=== PATIENT | male | born 1995 | race Hispanic/Latino ===

== ENCOUNTER 2025-01-20 02:24 | Emergency (ER) | payer BC, MEDICAID ==
[~2025-01-20] VITALS: Ht 175.3 cm; Wt 78.5 kg
[2025-01-20 02:25] VITALS: TEMP 98.2
--- NOTE | 2025-01-20 02:42 | ERN ---
ED Note History of Present Illness Stated Complaint: C/O ABD PAIN ONSET 2 HRS [employer] Chief Complaint: Abdominal Pain Time Seen by MD: 02:32 Dictation: Patient comes in. Because he has some left sided abdominal pain. And epigastric abdominal pain. 2 hours prior to arrival. Denies any previous medical problems denies any cough congestion runny nose denies any diarrhea says stools daily. I says that is soft stool. Denies any previous medical problems falls trips traumas or other issue denies taking medications Allergies: Coded Allergies: No Known Drug Allergies (Unverified Allergy, Unknown, 01/20/25) Past Medical History Past Medical History: No Pertinent History Surgical History: None Review of System Dictation Constitutional: Negative for fever,chills, and weight loss Eyes: Negative for injury, pain,redness, and discharge ENT: Negative for injury,pain or swelling Cardiovascular: Negative for chest pain, palpitations, and edema Respiratory: Negative for shortness of breath, cough, and wheezing, Abdomen/GI: Left-sided abdominal pain. Back: Negative for injury and pain : Negative for injury, bleeding and discharge MS/Extremity: Negative for injury and deformity Skin: Negative for rash, and discoloration Neuro: Negative for headache, weakness, numbness, tingling, and seizure Psych: Negative for suicide ideation, homicidal ideation, and hallucinations Initial Vital Sign VS Vital Signs Date Time Temp Pulse Resp B/P (MAP) Pulse Ox O2 Delivery O2 Flow Rate FiO2 01/20/25 02:25 98.2 78 20 125/88 100 Room Air 01/20/25 03:50 0 21 Physical Exam Dictation General: awake, alert, NAD Head/Face: Normocephalic, atraumatic Eyes: PERRL, EOMI, vision at baseline ENT: oral cavity clear, TMs clear, no signs of infection Neck: Trachea midline, supple, no nuchal rigidity Cardiovascular: RRR, normal S1/S2, No MRGs, no JVD Respiratory: CTAB, no respiratory distress, No rales or wheezes Abdomen: Soft, non-tender, non-distended, normal bowel sounds, no guarding or rebound. Skin: Warm, dry, normal turgor, no rash MS/Extremity: Pulses equal, no cyanosis, neurovascular intact, FROM Neuro: COAx4, GCS 15, strength 5/5, CN 2-12 intact, normal cerebellar exam, normal gait, Psych: Normal behavior, mood, and affect normal Patient was able to point. He says it was pain. His close to the epigastric region. More periumbilical. And then to the left side. But it was not of the right lower quadrant. No right upper quadrant pain negative King's sign Results (Laboratory/Radiology) Laboratory/Radiology Laboratory Tests Test 01/20/25 03:00 White Blood Count 7.8 K/uL (4.8-10.8) Red Blood Count 4.64 MIL/uL (4.50-6.20) Hemoglobin 14.3 g/dL (14.0-18.0) Hematocrit 41.7 % (42-54) L Mean Corpuscular Volume 89.9 fL (79-99) Mean Corpuscular Hemoglobin 30.8 pg (27.0-33.0) Mean Corpuscular Hemoglobin Concent 34.3 g/dL (32.0-36.0) Red Cell Distribution Width 11.6 % (11.0-15.5) Platelet Count 314 K/uL (130-400) Mean Platelet Volume 8.9 fL (7.5-10.5) Immature Granulocyte % (Auto) 0.3 % (0-1) Neutrophils (%) (Auto) 60.1 % (40.0-77.0) Lymphocytes (%) (Auto) 26.2 % (21.0-51.0) Monocytes (%) (Auto) 8.6 % (3.0-13.0) Eosinophils (%) (Auto) 4.4 % (0.0-8.0) Basophils (%) (Auto) 0.4 % (0.0-5.0) Neutrophils # (Auto) 4.7 K/uL (1.8-7.7) Lymphocytes # (Auto) 2.1 K/uL (1.0-4.8) Monocytes # (Auto) 0.7 K/uL (0.1-1.0) Eosinophils # (Auto) 0.34 K/uL (0.00-0.70) Basophils # (Auto) 0.03 K/uL (0.00-0.20) Absolute Immature Granulocyte (auto 0.02 K/uL (0-1) Nucleated Red Blood Cells 0.0 % (0.0-0.19) Sodium Level 139 mmol/L (136-145) Potassium Level 4.0 mmol/L (3.5-5.1) Chloride Level 102 mmol/L (101-111) Carbon Dioxide Level 33 mmol/L (21-32) H Blood Urea Nitrogen 11 mg/dL (7-18) Creatinine 1.0 mg/dL (0.5-1.3) Glomerular Filtration Rate Calc 104 mL/min (>90) Random Glucose 98 mg/dL (70-105) Total Calcium 8.9 mg/dL (8.5-10.1) Total Bilirubin 0.6 mg/dL (0.2-1.0) Aspartate Amino Transf (AST/SGOT) 14 U/L (10-37) Alanine Aminotransferase (ALT/SGPT) 26 U/L (12-78) Alkaline Phosphatase 73 U/L (50-136) Troponin I High Sensitivity < 4 ng/L (4-75) L Total Protein 6.9 g/dL (6.0-8.3) Albumin 4.0 g/dL (3.5-5.0) Lipase 28 U/L (16-77) ED Course ED Course Orders Procedure Category Date Status Time Cbc With Differential LAB 01/20/25 Complete 02:38 Comprehensive LAB 01/20/25 Complete Metabolic Panel 02:38 Troponin I High LAB 01/20/25 Complete Sensitivity 02:38 12 Lead Ekg Tracing- EKG 01/20/25 Logged Technical 02:38 Lactated Ringers PHA 01/20/25 Complete 1000ml (Lactated 03:00 Morphine 4mg Syg PHA 01/20/25 Complete (Morphine 4mg Syg) 03:00 Ondansetron 4mg Inj PHA 01/20/25 Complete (Zofran 4mg Inj) 03:00 Ct Abdomen/Pelvis W/O CT 01/20/25 Taken Contrast 02:38 Chest 1vw RAD 01/20/25 Taken 02:38 Lipase LAB 01/20/25 Complete 02:38 Current Medications Medications (Trade) Dose Ordered Sig/Radha Route PRN Reason Start Time Stop Time Status Last Admin Dose Admin Lactated Ringer's 1,000 ml @ 0 mls/hr ONCE ONCE IV 01/20/25 03:00 01/20/25 03:02 DC 01/20/25 03:56 Morphine Sulfate (morPHINE 4MG SYG) 4 mg ONCE ONCE IVP 4/16/25 03:00 01/20/25 03:02 DC 01/20/25 03:56 Ondansetron HCl (zoFRAN 4MG INJ) 4 mg ONCE ONCE IVP 01/20/25 03:00 01/20/25 03:02 DC 01/20/25 03:56 Vital Signs Date Time Temp Pulse Resp B/P (MAP) Pulse Ox O2 Delivery O2 Flow Rate FiO2 01/20/25 03:50 64 18 122/72 100 Room Air* 0 21 01/20/25 02:25 98.2 78 20 125/88 100 Room Air Medical Decision Making MDM Likely GERD gastritis intestinal colic. Did consider diverticulitis unlikely be appendicitis abilities he has no pain in his region. No objective abdominal pain no tachycardia no fevers no chills no nausea no vomiting I told the patient that we can do some labs tests imaging and pain medication feel better he was in agreement with this no other questions complaints concerns at this time. MDM: Differential diagnosis: Rationale: Tests considered and ordered secondary to shared decision making include: Previous outside records reviewed: Old ER visits. Risk of complication and/or morbidity or mortality of patient management: None Medications-Per medication reconciliation Need for hospitalization: Patient does not meet criteria for hospitalization. Need for emergency major/minor surgery: No There are no social concerns with this patient. Prescription drug management Prescriptions will include symptomatic care Patient's prior external medical records from other ER visits were reviewed by me as indicated. Prior testing and results from previous visits were reviewed. Prior tests were taken into account with medical decision making and resource utilization, independent historian/historians were used to obtain complete medical history. I independently interpreted the test that were performed, results were reviewed by me and considered findings on radiology if ordered. Medical management and examination interpretation discussions were had by me with other qualified healthcare professionals as indicated for the patient's care. DX & DISP Disposition: Discharge Departure Impression: Primary Impression: Abdominal pain Condition: Stable Scripts Ondansetron (Ondansetron Odt) 4 Mg Tab.rapdis 4 MG PO Q6HPRN PRN for NAUSEA for 5 Days, #20 TAB Prov: AAKASH DUQUE MD 01/20/25 Famotidine (Famotidine) 20 Mg Tablet 20 MG PO BID for 5 Days, #10 TAB Prov: AAKASH DUQUE MD 01/20/25 Referrals: SELF,REFERRAL (PCP) AAKASH DUQUE MD Jan 20, 2025 02:42
[2025-01-20 03:23] LABS: BILIRUBIN,TOTAL 0.6 mg/dL (0.2-1.0); TOTAL PROTEIN, SERUM 6.9 g/dL (6.0-8.3)
[2025-01-20 03:31] LABS: BASOPHILS # (AUTO) 0.03 K/uL (0.00-0.20); BASOPHILS % (AUTO) 0.4 % (0.0-5.0); EOSINOPHILS # (AUTO) 0.34 K/uL (0.00-0.70); EOSINOPHILS % (AUTO) 4.4 % (0.0-8.0); HEMATOCRIT 41.7 % (42-54); IMMATURE GRANULOCYTE ABSOLUTE 0.02 K/uL (0-1); LYMPHOCYTES # (AUTO) 2.1 K/uL (1.0-4.8); LYMPHOCYTES % (AUTO) 26.2 % (21.0-51.0); MEAN CORPUSCULAR HEMOGLOBIN 30.8 pg (27.0-33.0); MEAN CORPUSCULAR HGB CONC 34.3 g/dL (32.0-36.0); MEAN CORPUSCULAR VOLUME 89.9 fL (79-99); MONOCYTES # (AUTO) 0.7 K/uL (0.1-1.0); MONOCYTES % (AUTO) 8.6 % (3.0-13.0); NEUTROPHILS # (AUTO) 4.7 K/uL (1.8-7.7); NEUTROPHILS % (AUTO) 60.1 % (40.0-77.0); PLATELET COUNT (AUTO) 314 K/uL (130-400); RED BLOOD CELL COUNT(AUTO) 4.64 MIL/uL (4.50-6.20); RED CELL DISTRIBUTION WIDTH 11.6 % (11.0-15.5); WHITE BLOOD COUNT (AUTO) 7.8 K/uL (4.8-10.8)
--- NOTE | 2025-01-20 03:45 | NUR ---
BROUGHT BACK FROM CT SCAN
[2025-01-20 03:50] VITALS: BP 122/72; PULSE 64; RESP 18; O2SAT 100
[2025-01-20] MEDS: ondanSETRON 4MG INJ IVP ONE (03:56)
[2025-01-20] MEDS: LACTATED RINGERS 1000ML 1,000 ML IV ONE (03:56)
[2025-01-20] MEDS: morPHINE 4 MG SYG IVP ONE (03:56)
[2025-01-20] MEDS ORDERED: ONDA-243 PO (04:29)
[2025-01-20] MEDS ORDERED: FAMO20TA8 PO (04:29)
--- NOTE | 2025-01-20 06:28 | EKG ---
[facility] Test Date: 2025-01-20 Test Time: 02:57:45 Pat Name: SHEFALI NGUYEN Department: ED Room: Gender: M [employer]: [id number] : 1995 Requested By: AAKASH DUQUE Order Number: [id number] Reading MD: Kerry Centeno Measurements Intervals [place] Rate: 64 P: 20 OK: 147 QRS: 66 QRSD: 82 T: 49 QT: 365 QTc: 376 Interpretive Statements Sinus rhythm No previous ECG available for comparison Electronically Signed On 01-22-2025 09:32:51 CDT by Kerry Centeno Please click the below link to view image of tracing.
--- NOTE | 2025-01-20 09:44 | HMCIMG ---
PORTABLE CHEST RADIOGRAPH INDICATION: cp COMPARISON: None FINDINGS: Heart size is normal. The pulmonary vascularity and jose a appear normal. No abnormal pulmonary parenchymal opacity or consolidation identified. No significant pleural effusion noted. No pneumothorax detected. IMPRESSION: No radiographic evidence for any acute cardiopulmonary process.
--- NOTE | 2025-01-20 10:02 | HMCIMG ---
CT ABDOMEN WITHOUT CONTRAST. CT PELVIS WITHOUT CONTRAST. INDICATION: Left lower abdominal pain TECHNIQUE: Routine transaxial imaging using 5 mm slice thickness through the abdomen and pelvis without the administration of IV contrast. Thin slice reconstructions are also provided. Coronal and sagittal reformatted images acquired for interpretation. CT was performed with one or more of the following dose reduction techniques: Automated exposure control, adjustment of the mA and/or kV according to patient size, or use of iterative reconstruction technique. COMPARISON: None FINDINGS: ON NONCONTRAST IMAGING: ABDOMEN: Heart size is normal. Visible lung bases are clear. No abnormal renal calcifications, hydronephrosis, perinephric inflammation, or proximal hydroureter detected. The liver is normal in size and smooth in contour without biliary duct dilation. The spleen is normal in size and attenuation. The gallbladder appears normal. The pancreas appears normal without pancreatic duct dilation. The adrenal glands appear normal. No significant abdominal, retrocrural or retroperitoneal adenopathy noted. No evidence for intra-abdominal free air or organized fluid collection. No aortic aneurysmal dilation identified. PELVIS: No abnormal calcifications within the urinary bladder or distal ureters. No evidence for free air or organized pelvic fluid collection. No significant pelvic adenopathy detected. A few diverticula along the distal colon. Terminal ileum appears unremarkable. The appendix appears normal. Visible osseous structures are intact. Bilateral L5-S1 pseudoarthrosis. IMPRESSION: Mild distal colonic diverticulosis without evidence for any acute intra-abdominal or pelvic process.
== END 2025-01-20 04:34 | disposition home or self-care (01) ==
LOC: EDH 02:24
DX: K57.30 Diverticulosis of large intestine without perforation or abscess without bleeding (principal); R10.13 Epigastric pain
CPT/HCPCS: 99284; 74176; 96374; 71045; 96361; 96375; 84484; 80053; 83690; 85025; 36415; 93005; J7030; J2405; J2270